=== PATIENT | male | born 1990 | race Caucasian/White ===

== ENCOUNTER 2019-11-15 07:33 | Emergency (ER) | payer BC ==
[~2019-11-15] VITALS: Ht 193 cm; Wt 163.3 kg
[~2019-11-15 07:33] MED LIST: AMLODIPINE BES2.5 MG PO; CHLO25 PO; IBUP800 PO; LISI5 PO; NALT50 PO; Ondansetron Odt8 MG MM; PARO20 PO; Pepcid20 MG PO
[2019-11-15 08:31] LABS: BASOPHILS ABSOLUTE AUTO 0.02 K/mm3 (0.00-0.23); BASOPHILS PERCENT AUTO 0 % (0-2); EOSINOPHILS ABSOLUTE AUTO 0.03 K/mm3 (0.00-0.68); EOSINOPHILS PERCENT AUTO 0 % (0-6); Hematocrit 43.6 % (37.0-53.0); Hemoglobin 14.4 g/dL (13.5-17.5); IMMATURE GRAN ABSOLUTE AUTO 0.05 K/mm3 (0.00-0.10); IMMATURE GRAN PERCENT AUTO 1 % (0-1); LYMPHOCYTES ABSOLUTE AUTO 1.79 K/mm3 (0.84-5.20); LYMPHOCYTES PERCENT AUTO 21 % (21-46); MONOCYTES ABSOLUTE AUTO 0.75 K/mm3 (0.16-1.47); MONOCYTES PERCENT AUTO 9 % (4-13); Mean Corpuscular HGB 28.7 pg (26.0-34.0); Mean Corpuscular Volume 87 fL (80-100); Mean Platelet Volume 9.1 fL (9.1-12.4); NEUTROPHILS PERCENT AUTO 69 % (41-73); Platelet Count 299 K/mm3 (150-400); RDW Standard Deviation 44.5 fL (35.1-46.3); Red Blood Cell Count 5.02 M/mm3 (4.30-5.90); White Blood Cell Count 8.44 K/mm3 (4.00-11.30)
[2019-11-15 08:41] LABS: Alanine Aminotransfer (ALT/SGP 61 U/L (12-78); Albumin, Blood 3.6 g/dL (3.4-5.0); Albumin/Globulin Ratio 0.9 (0.8-1.8); Alk Phos 61 U/L (50-136); Anion Gap 4 mmol/L (6-16); Aspartate Aminotrans (AST/SGOT 43 U/L (12-37); Bilirubin, Total 0.3 mg/dL (0.1-1.0); Blood Urea Nitrogen 11 mg/dL (8-24); Bun/Creatinine Ratio 13.1 (12.0-20.0); CO2, Blood 28 mmol/L (21-32); Calcium, Blood 8.6 mg/dL (8.5-10.1); Chloride, Blood 110 mmol/L (98-108); Creatinine, Blood 0.84 mg/dL (0.60-1.20); Globulin, Blood 3.8 g/dL (2.2-4.0); Glomerular Filtration Rate >60 (60-); Glucose, Blood 110 mg/dL (70-99); Magnesium, Blood 2.1 mg/dL (1.6-2.4); Potassium, Blood 4.1 mmol/L (3.5-5.5); Sodium, Blood 142 mmol/L (136-145); Total Protein, Blood 7.4 g/dL (6.4-8.2)
[2019-11-15] MEDS ORDERED: PROM25 PO (09:31)
[2019-11-15] MEDS ORDERED: CHLO25 PO (09:31)
== END 2019-11-15 09:50 | disposition home or self-care (01) ==
LOC: ER 07:33
PROVIDERS: Emergency Medicine
DX: F10.239 Alcohol dependence with withdrawal, unspecified (principal); F17.210 Nicotine dependence, cigarettes, uncomplicated; F41.0 Panic disorder [episodic paroxysmal anxiety]
CPT/HCPCS: 36415; 80053; 83690; 83735; 85025; 96374; 96375; 99284-25; A9270-GY; J2060; J2550; J7120

== ENCOUNTER 2019-12-19 18:28 | Observation (INO) | payer BC ==
[~2019-12-19] VITALS: Ht 193 cm; Wt 159.0 kg
[~2019-12-19 18:28] MED LIST changes: -AMLODIPINE BES2.5 MG PO; -LISI5 PO; +PROM25 PO
[2019-12-19] MEDS ORDERED: Prinivil10 MG PO (19:26)
[2019-12-19] MEDS ORDERED: OMEP20ER PO (19:27)
[2019-12-19] MEDS ORDERED: AMLODIPINE BES2.5 MG PO (19:27)
[2019-12-19] MEDS ORDERED: Naltrexone HCl50 MG PO (19:28)
[2019-12-19] MEDS ORDERED: Hydroxyzine HCl50 MG PO (19:29)
[2019-12-19 20:33] LABS: BASOPHILS ABSOLUTE AUTO 0.03 K/mm3 (0.00-0.23); BASOPHILS PERCENT AUTO 0 % (0-2); EOSINOPHILS ABSOLUTE AUTO 0.03 K/mm3 (0.00-0.68); EOSINOPHILS PERCENT AUTO 0 % (0-6); Hematocrit 45.4 % (37.0-53.0); Hemoglobin 14.6 g/dL (13.5-17.5); IMMATURE GRAN ABSOLUTE AUTO 0.04 K/mm3 (0.00-0.10); IMMATURE GRAN PERCENT AUTO 0 % (0-1); LYMPHOCYTES ABSOLUTE AUTO 3.78 K/mm3 (0.84-5.20); LYMPHOCYTES PERCENT AUTO 37 % (21-46); MONOCYTES ABSOLUTE AUTO 0.84 K/mm3 (0.16-1.47); MONOCYTES PERCENT AUTO 8 % (4-13); Mean Corpuscular HGB 28.2 pg (26.0-34.0); Mean Corpuscular HGB Conc 32.2 g/dL (31.5-36.5); Mean Corpuscular Volume 88 fL (80-100); Mean Platelet Volume 9.2 fL (9.1-12.4); NEUTROPHILS ABSOLUTE AUTO 5.51 K/mm3 (1.96-9.15); NEUTROPHILS PERCENT AUTO 54 % (41-73); Platelet Count 387 K/mm3 (150-400); RDW Standard Deviation 42.4 fL (35.1-46.3); Red Blood Cell Count 5.17 M/mm3 (4.30-5.90); White Blood Cell Count 10.23 K/mm3 (4.00-11.30)
[2019-12-19 20:51] LABS: Alanine Aminotransfer (ALT/SGP 65 U/L (12-78); Albumin, Blood 3.9 g/dL (3.4-5.0); Alk Phos 60 U/L (50-136); Anion Gap 7 mmol/L (6-16); Aspartate Aminotrans (AST/SGOT 46 U/L (12-37); Bilirubin, Total 0.4 mg/dL (0.1-1.0); Blood Urea Nitrogen 8 mg/dL (8-24); Bun/Creatinine Ratio 7.3 (12.0-20.0); CO2, Blood 24 mmol/L (21-32); Calcium, Blood 8.1 mg/dL (8.5-10.1); Chloride, Blood 108 mmol/L (98-108); Globulin, Blood 3.8 g/dL (2.2-4.0); Glomerular Filtration Rate >60 (60-); Glucose, Blood 103 mg/dL (70-99); Sodium, Blood 139 mmol/L (136-145); Total Protein, Blood 7.7 g/dL (6.4-8.2)
[2019-12-19 20:54] LABS: Ethanol (Alcohol), Blood, Med 340 mg/dL
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
--- NOTE | 2019-12-20 05:30 | NUR ---
SHIFT SUMMARY NO ACUTE EVENTS OVERNIGHT. PT SLEPT THROUGHOUT THE NIGHT. PT RESPONDING TO VERBAL STIMULI, WITHOUT ANY NOXIOUS STIMULI. BEFORE, ONE WOULD HAVE TO "NUDGE" HIM A BIT TO GET A RESPONSE, NOW THE SEDATION LEVEL APPEARS TO BE TRANSFER CAR OPERATOR, AND HE IS MOVING AROUND MORE FREQUENTLY - YET REMAINS ASLEEP. HE CONTINUES TO USE 8L ON THE OXYMIZER, WHEN NOT OBSTRUCTING HE SATs HIGH 90's. THE BANANA BAG CONTINUES TO INFUSE AT 75ML/HR. VITALS STABLE, SINUS RHYTHM. BED LOW AND LOCKED. CALL LIGHT WITHIN REACH. ARISTEO ESPINOSA ACTING SITTER.
[2019-12-20 08:31] LABS: BASOPHILS ABSOLUTE AUTO 0.04 K/mm3 (0.00-0.23); BASOPHILS PERCENT AUTO 0 % (0-2); EOSINOPHILS ABSOLUTE AUTO 0.01 K/mm3 (0.00-0.68); EOSINOPHILS PERCENT AUTO 0 % (0-6); Hematocrit 45.7 % (37.0-53.0); Hemoglobin 14.3 g/dL (13.5-17.5); IMMATURE GRAN ABSOLUTE AUTO 0.07 K/mm3 (0.00-0.10); IMMATURE GRAN PERCENT AUTO 1 % (0-1); LYMPHOCYTES ABSOLUTE AUTO 1.87 K/mm3 (0.84-5.20); LYMPHOCYTES PERCENT AUTO 17 % (21-46); MONOCYTES ABSOLUTE AUTO 0.86 K/mm3 (0.16-1.47); MONOCYTES PERCENT AUTO 8 % (4-13); Mean Corpuscular HGB 28.3 pg (26.0-34.0); Mean Corpuscular HGB Conc 31.3 g/dL (31.5-36.5); Mean Corpuscular Volume 90 fL (80-100); Mean Platelet Volume 9.1 fL (9.1-12.4); NEUTROPHILS ABSOLUTE AUTO 8.37 K/mm3 (1.96-9.15); NEUTROPHILS PERCENT AUTO 75 % (41-73); Platelet Count 308 K/mm3 (150-400); RDW Coefficient Variation 13.2 % (11.7-14.2); Red Blood Cell Count 5.06 M/mm3 (4.30-5.90); White Blood Cell Count 11.22 K/mm3 (4.00-11.30)
[2019-12-20 08:45] LABS: Alanine Aminotransfer (ALT/SGP 68 U/L (12-78); Albumin, Blood 3.5 g/dL (3.4-5.0); Albumin/Globulin Ratio 0.9 (0.8-1.8); Alk Phos 56 U/L (50-136); Anion Gap 7 mmol/L (6-16); Aspartate Aminotrans (AST/SGOT 117 U/L (12-37); Bilirubin, Total 0.6 mg/dL (0.1-1.0); Blood Urea Nitrogen 10 mg/dL (8-24); Bun/Creatinine Ratio 9.7 (12.0-20.0); CO2, Blood 23 mmol/L (21-32); Chloride, Blood 106 mmol/L (98-108); Creatinine, Blood 1.03 mg/dL (0.60-1.20); Globulin, Blood 3.7 g/dL (2.2-4.0); Glomerular Filtration Rate >60 (60-); Glucose, Blood 112 mg/dL (70-99); Potassium, Blood 4.4 mmol/L (3.5-5.5); Sodium, Blood 136 mmol/L (136-145); Total Protein, Blood 7.2 g/dL (6.4-8.2)
--- NOTE | 2019-12-20 15:55 | NUR ---
Safety Plan complete. Harmonyjohn present in room. Harmonyjohn called for help to get pt to the hospital. Sarina reports "he cannot sit still". Patient had relapsed after 32 days of sobriety. he was unable to identify what stressors may have been present. He does own a 45 gun. Discussed with he and sarina to lock it up so he does not have access "in case he drank again". Reviewed poor impulse control and risk when intoxicated. Crisis number magnet and sarina given "after an attempt" education booklet. Pt completed [facility] in past. He denies current SI or previous attempts. Discussed AA and referral to [facility] for him. RN apprised and will contact Historian Research Assistant for DC plan. Yang has panic attacks since age 17, and he began drinking then also to try and control them. 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 He smokes pot to calm down at home. He has been on Naltrexone before, but it made him ill when he took it. Discussed Anatabuse, and suggested he speak to psychiatrist seeing him in afternoon. Interview completed at 1230.
[2019-12-20] MEDS ORDERED: TRAZ50 PO (16:48)
--- NOTE | 2019-12-20 17:21 | NUR ---
DISCHARGE PT ALERT AND ORIENTED THROUGHOUT SHIFT. VS STABLE. O2 SATS HAVE REMAINED ABOVE 90% ON RA SINCE APPROXIMATELY 0900. PT DENIES ANY PAIN. PT MEDICATED WITH LIBRIUM PER JAYLENE. DR. KING IN TO SEE PT THIS AFTERNOON AND OK WITH DISCHARGE. PT PROVIDED WITH DISCHARGE INSTRUCTIONS. PT EDUCATED ON NEW MEDICATIONS. ALL QUESTIONS ANSWERED. PT TAKEN OUT BY WC.
== END 2019-12-20 17:15 | disposition home or self-care (01) ==
LOC: ER 18:28 → EOR 18:29 → ER 18:29 → ICUW 23:17
PROVIDERS: Internal Medicine; Physician Assistant; ADMIT Emergency Medicine
DX: F10.229 Alcohol dependence with intoxication, unspecified (principal); G93.40 Encephalopathy, unspecified; J96.01 Acute respiratory failure with hypoxia; I10 Essential (primary) hypertension; K21.9 Gastro-esophageal reflux disease without esophagitis; F41.9 Anxiety disorder, unspecified; Z79.899 Other long term (current) drug therapy; E66.9 Obesity, unspecified; F17.210 Nicotine dependence, cigarettes, uncomplicated; Z68.42 Body mass index [BMI] 45.0-49.9, adult; Y90.8 Blood alcohol level of 240 mg/100 ml or more
CPT/HCPCS: 36415; 80053; 85025; 96365; 96366; 96372-59; 96374-59; 96375-59; 99285-25; G0378; G0480; J1200; J1630; J2060; J2405; J3411; J3475; J7042

== ENCOUNTER 2020-03-10 18:36 | Emergency (ER) | payer BC ==
[~2020-03-10] VITALS: Ht 193 cm; Wt 170.1 kg
[~2020-03-10 18:36] MED LIST changes: +AMLODIPINE BES2.5 MG PO; +Hydroxyzine HCl50 MG PO; +Naltrexone HCl50 MG PO; +OMEP20ER PO; +Prinivil10 MG PO; +TRAZ50 PO
== END 2020-03-10 21:40 | disposition home or self-care (01) ==
LOC: ER 18:36
DX: S60.222A Contusion of left hand, initial encounter (principal); F41.9 Anxiety disorder, unspecified; I10 Essential (primary) hypertension; F17.210 Nicotine dependence, cigarettes, uncomplicated; Z79.899 Other long term (current) drug therapy; W22.01XA Walked into wall, initial encounter
CPT/HCPCS: 73130; 99283-25

== ENCOUNTER 2020-03-11 21:53 | Emergency (ER) | payer BC ==
[~2020-03-11] VITALS: Ht 195.6 cm; Wt 170.1 kg
[2020-03-12] MEDS ORDERED: CHLO25 PO (06:03)
== END 2020-03-11 22:49 | disposition left against medical advice (07) ==
LOC: ER 21:53
DX: Z53.21 Procedure and treatment not carried out due to patient leaving prior to being seen by health care provider (principal)

== ENCOUNTER 2020-03-12 02:12 | Emergency (ER) | payer BC ==
[~2020-03-12] VITALS: Ht 195.6 cm; Wt 170.1 kg
[2020-03-12 04:47] LABS: BASOPHILS ABSOLUTE AUTO 0.03 K/mm3 (0.00-0.23); BASOPHILS PERCENT AUTO 0 % (0-2); EOSINOPHILS ABSOLUTE AUTO 0.03 K/mm3 (0.00-0.68); EOSINOPHILS PERCENT AUTO 0 % (0-6); Hematocrit 44.3 % (37.0-53.0); Hemoglobin 14.6 g/dL (13.5-17.5); IMMATURE GRAN ABSOLUTE AUTO 0.03 K/mm3 (0.00-0.10); IMMATURE GRAN PERCENT AUTO 0 % (0-1); LYMPHOCYTES ABSOLUTE AUTO 2.55 K/mm3 (0.84-5.20); LYMPHOCYTES PERCENT AUTO 32 % (21-46); MONOCYTES ABSOLUTE AUTO 0.57 K/mm3 (0.16-1.47); MONOCYTES PERCENT AUTO 7 % (4-13); Mean Corpuscular HGB 28.7 pg (26.0-34.0); Mean Corpuscular Volume 87 fL (80-100); Mean Platelet Volume 9.1 fL (9.1-12.4); NEUTROPHILS ABSOLUTE AUTO 4.79 K/mm3 (1.96-9.15); NEUTROPHILS PERCENT AUTO 60 % (41-73); NRBC ABSOLUTE 0.02 K/mm3 (0.00-0.02); NRBC Auto 0.3 /100 WBC (0.0-0.2); Platelet Count 340 K/mm3 (150-400); RDW Coefficient Variation 13.8 % (11.7-14.2); Red Blood Cell Count 5.08 M/mm3 (4.30-5.90)
[2020-03-12 05:08] LABS: Alanine Aminotransfer (ALT/SGP 69 U/L (12-78); Albumin, Blood 3.9 g/dL (3.4-5.0); Alk Phos 58 U/L (50-136); Anion Gap 7 mmol/L (6-16); Aspartate Aminotrans (AST/SGOT 51 U/L (12-37); Bilirubin, Total 0.6 mg/dL (0.1-1.0); Blood Urea Nitrogen 11 mg/dL (8-24); Bun/Creatinine Ratio 8.6 (12.0-20.0); CO2, Blood 26 mmol/L (21-32); Calcium, Blood 8.3 mg/dL (8.5-10.1); Chloride, Blood 107 mmol/L (98-108); Creatinine, Blood 1.28 mg/dL (0.60-1.20); Globulin, Blood 3.9 g/dL (2.2-4.0); Glomerular Filtration Rate >60 (60-); Glucose, Blood 111 mg/dL (70-99); Potassium, Blood 4.4 mmol/L (3.5-5.5); Sodium, Blood 140 mmol/L (136-145); Total Protein, Blood 7.8 g/dL (6.4-8.2)
[2020-03-12] MEDS ORDERED: CHLO25 PO (06:03)
== END 2020-03-12 08:10 | disposition home or self-care (01) ==
LOC: ER 02:12
PROVIDERS: Emergency Medicine
DX: F10.10 Alcohol abuse, uncomplicated (principal); Z60.9 Problem related to social environment, unspecified; R45.851 Suicidal ideations; F41.0 Panic disorder [episodic paroxysmal anxiety]; F32.9 Major depressive disorder, single episode, unspecified; F17.210 Nicotine dependence, cigarettes, uncomplicated; Z79.899 Other long term (current) drug therapy
CPT/HCPCS: 36415; 80053; 83690; 85025; 96361; 96374; 96375; 99284-25; A9270-GY; J2060; J2405; J7030

== ENCOUNTER 2020-08-25 21:29 | Observation (INO) | payer OTHER ==
[~2020-08-25] VITALS: Ht 193 cm; Wt 176.4 kg
[~2020-08-25 21:29] MED LIST changes: -AMLODIPINE BES2.5 MG PO; -OMEP20ER PO; -Prinivil10 MG PO; -TRAZ50 PO
[2020-08-25 22:01] LABS: BASOPHILS ABSOLUTE AUTO 0.04 K/mm3 (0.00-0.23); BASOPHILS PERCENT AUTO 0 % (0-2); EOSINOPHILS ABSOLUTE AUTO 0.02 K/mm3 (0.00-0.68); EOSINOPHILS PERCENT AUTO 0 % (0-6); Hematocrit 44.2 % (37.0-53.0); Hemoglobin 14.9 g/dL (13.5-17.5); IMMATURE GRAN ABSOLUTE AUTO 0.08 K/mm3 (0.00-0.10); IMMATURE GRAN PERCENT AUTO 1 % (0-1); LYMPHOCYTES ABSOLUTE AUTO 3.22 K/mm3 (0.84-5.20); LYMPHOCYTES PERCENT AUTO 34 % (21-46); MONOCYTES ABSOLUTE AUTO 0.81 K/mm3 (0.16-1.47); MONOCYTES PERCENT AUTO 9 % (4-13); Mean Corpuscular HGB 28.2 pg (26.0-34.0); Mean Corpuscular HGB Conc 33.7 g/dL (31.5-36.5); Mean Corpuscular Volume 84 fL (80-100); Mean Platelet Volume 8.8 fL (9.1-12.4); NEUTROPHILS ABSOLUTE AUTO 5.24 K/mm3 (1.96-9.15); NEUTROPHILS PERCENT AUTO 56 % (41-73); Platelet Count 386 K/mm3 (150-400); RDW Coefficient Variation 13.4 % (11.7-14.2); RDW Standard Deviation 41.2 fL (35.1-46.3); Red Blood Cell Count 5.28 M/mm3 (4.30-5.90); White Blood Cell Count 9.41 K/mm3 (4.00-11.30)
[2020-08-25 22:21] LABS: Alanine Aminotransfer (ALT/SGP 59 U/L (12-78); Alk Phos 61 U/L (50-136); Anion Gap 5 mmol/L (6-16); Aspartate Aminotrans (AST/SGOT 47 U/L (12-37); Bilirubin, Total 0.5 mg/dL (0.1-1.0); Blood Urea Nitrogen 6 mg/dL (8-24); Bun/Creatinine Ratio 6.6 (12.0-20.0); CO2, Blood 30 mmol/L (21-32); Calcium, Blood 8.6 mg/dL (8.5-10.1); Chloride, Blood 106 mmol/L (98-108); Creatinine, Blood 0.91 mg/dL (0.60-1.20); Globulin, Blood 3.9 g/dL (2.2-4.0); Glomerular Filtration Rate >60 (60-); Glucose, Blood 119 mg/dL (70-99); Potassium, Blood 3.7 mmol/L (3.5-5.5); Sodium, Blood 141 mmol/L (136-145); Total Protein, Blood 7.9 g/dL (6.4-8.2)
[2020-08-25 22:22] LABS: Ethanol (Alcohol), Blood, Med 307 mg/dL
[2020-08-25] MEDS ORDERED: AMLO10 PO (22:35)
[2020-08-25] MEDS ORDERED: BUSPIRONE HCL10 M1 PO (22:35)
[2020-08-25] MEDS ORDERED: Vistaril50 MG PO (22:36)
[2020-08-25] MEDS ORDERED: LISI20 PO (22:36)
[2020-08-25] MEDS ORDERED: CLON.1 PO (22:37)
[2020-08-25] MEDS ORDERED: OMEP20ER PO (22:44)
[2020-08-25] MEDS ORDERED: TRAZ50 PO (22:45)
--- NOTE | 2020-08-26 02:20 | NUR ---
PT TO ICU 14 VIA NATALIARANTONIO WITH ED RN @ 0125, PT ALERT AND ORIENTED TO SELF, EVENT, LOCATION, MONTH/YEAR AND FOLLOWING DIRECTIONS. PT TRANSFERED TO ICU WITH SBA. [place] 15, MEDICATED WITH ATIVAN AND LIBRIUM. MONITOR SHOWS SINUS RHYTHM WITH HR 80'S-90'S, BP STABLE. PT ON 3L PER NC. PTS SPOUSE TO ROOM, COMPLETED MED REC AND ADMIT Hx WITH PTS SPOUSE, DISCUSSED PLAN OF CARE WITH SPOUSE, SPOUSE AND PT PLEASANT AND AGREEABLE WITH PLAN TO MEDICATE PT PRIMARILY WITH LIBRIUM AND ATIVAN FOR ALCOHOL WITHDRAWALS. PTS STS PT WAS RECENTLY DISCHARGED FROM REHAB FOR ALCOHOL ABUSE IN [place] AND THE PLAN IS FOR PT TO TRAVEL TO [place] IN A COUPLE OF DAYS FOR A 9 MONTH INPATIENT REHAB. PT QUICKLY FELL ASLEEP AFTER ATIVAN ADMINISTRATION. SPOUSE STS PT RECENTLY HAD SLEEP STUDY BUT THEY HAVE NOT RECEIVED RESULTS YET. PT CURRENTLY WITH WITNESSED PERIODS OF APNEA WHILE SLEEPING WITH OXYGEN DESATURATIONS TO 60'S. CALL PLACED TO DR ROD, SEE NEW ORDER FOR CPAP/BIPAP. NOTIFED RT OF NEW ORDER. PT DENIED GI/ ISSUES. URINAL AT BEDSIDE, CALL LIGHT WITHIN REACH.
--- NOTE | 2020-08-26 02:45 | NUR ---
PTS O2 SATURATIONS MAINTAINING 70'S-80'S, PT DIFFICULT TO AROUSE, PT PLACED ON 15L NRB, O2 SATURATIONS IMPROVED TO 95-99% SECOND CALL PLACED TO RT FOR CPAP.
--- NOTE | 2020-08-26 03:30 | NUR ---
PT PLACED ON CPAP 10, FIO2 30%. WOB DECREASED, AIRMOVEMENT AND LUNG SOUNDS IMPROVED, MILD COARSNESS NOTED T/O. PT REMAINS VERY SEDATED AND DIFFICULT TO AROUSE.
[2020-08-26 03:40] LABS: BASOPHILS ABSOLUTE AUTO 0.04 K/mm3 (0.00-0.23); BASOPHILS PERCENT AUTO 0 % (0-2); EOSINOPHILS ABSOLUTE AUTO 0.03 K/mm3 (0.00-0.68); EOSINOPHILS PERCENT AUTO 0 % (0-6); Hematocrit 42.6 % (37.0-53.0); Hemoglobin 13.9 g/dL (13.5-17.5); IMMATURE GRAN ABSOLUTE AUTO 0.06 K/mm3 (0.00-0.10); IMMATURE GRAN PERCENT AUTO 1 % (0-1); LYMPHOCYTES ABSOLUTE AUTO 3.31 K/mm3 (0.84-5.20); LYMPHOCYTES PERCENT AUTO 36 % (21-46); MONOCYTES ABSOLUTE AUTO 0.94 K/mm3 (0.16-1.47); MONOCYTES PERCENT AUTO 10 % (4-13); Mean Corpuscular HGB 28.3 pg (26.0-34.0); Mean Corpuscular HGB Conc 32.6 g/dL (31.5-36.5); Mean Corpuscular Volume 87 fL (80-100); NEUTROPHILS ABSOLUTE AUTO 4.85 K/mm3 (1.96-9.15); NEUTROPHILS PERCENT AUTO 53 % (41-73); Platelet Count 403 K/mm3 (150-400); RDW Coefficient Variation 13.8 % (11.7-14.2); RDW Standard Deviation 43.8 fL (35.1-46.3); Red Blood Cell Count 4.92 M/mm3 (4.30-5.90); White Blood Cell Count 9.23 K/mm3 (4.00-11.30)
[2020-08-26 04:00] LABS: Alanine Aminotransfer (ALT/SGP 50 U/L (12-78); Albumin, Blood 3.5 g/dL (3.4-5.0); Alk Phos 57 U/L (50-136); Anion Gap 3 mmol/L (6-16); Aspartate Aminotrans (AST/SGOT 35 U/L (12-37); Bilirubin, Total 0.5 mg/dL (0.1-1.0); Blood Urea Nitrogen 7 mg/dL (8-24); Bun/Creatinine Ratio 8.5 (12.0-20.0); CO2, Blood 31 mmol/L (21-32); Calcium, Blood 7.7 mg/dL (8.5-10.1); Chloride, Blood 107 mmol/L (98-108); Creatinine, Blood 0.82 mg/dL (0.60-1.20); Globulin, Blood 3.5 g/dL (2.2-4.0); Glomerular Filtration Rate >60 (60-); Glucose, Blood 135 mg/dL (70-99); Potassium, Blood 4.3 mmol/L (3.5-5.5); Sodium, Blood 141 mmol/L (136-145)
--- NOTE | 2020-08-26 05:27 | NUR ---
SHIFT SUMMARY PT REMAINS ON CPAP 10 FIO2 40%, PT CONTINUES TO BE DIFFICULT TO AROUSE BUT OPENS EYES TO VERBAL STIMULI. MONITOR SHOWS SINUS RHYTHM WITH HR 80'S-90'S, BP STABLE. CIWA UPON ARRIVAL TO UNIT 15, PT SLEEPING/DIFFICULT TO AROUSE FOR ALL FOLLOW UP ASSESSMENTS. O2 SATURATIONS> 90% ON CPAP, RESPIRATIONS EVEN AND UNLABORED. NO VOID/BM THIS SHIFT. CALL LIGHT WITHIN REACH.
--- NOTE | 2020-08-26 09:12 | NUR ---
Received report from Tammie CARDENAS. Patient has been sleeping most of am on CPAP 10, 30% fiO2 and sats 98%. He just awakened and gave 2 mg Ativan and 50 mg Librium as wekll all am meds and he tolerated well with sips of water. He asked to stand at bedside and did well independently ansd remains a little shakey. He denies any apetite and refuse breakfast currently. He is on banana bag at 75 ml/hr infusing in 18ga IV in LAC. He uses urinal appropriately. He is SR 70's and systolic 140-150's prior to am meds. He is currently on RA and sats low 90%'s.
--- NOTE | 2020-08-26 11:27 | NUR ---
After patient done with shower requested breakfast and ate about 70% and started to go back top sleep. I placed back on CPAP at 1030 same settings and sats >95%. called and gave update. Dr Coulter by and med changes for home meds.
--- NOTE | 2020-08-26 14:07 | NUR ---
patient sitting up in bwed and is appropriate and cooperative, His tremors are decreased and is independent in room. He states no neEd currently for intervention for anxiety. VSS, See EMR. Nicotine patch placed. CIWA 5
[2020-08-26] MEDS ORDERED: Nicoderm Cq1 EAC1 TOP (14:51)
[2020-08-26] MEDS ORDERED: FOLI1 PO (14:52)
[2020-08-26] MEDS ORDERED: CHLO25 PO (14:52)
[2020-08-26] MEDS ORDERED: B-1100 M1 PO (14:52)
--- NOTE | 2020-08-26 15:15 | NUR ---
Dr Mae by and assessed patient and discharged home. He is driving to rehab in [place] and leaving today. Reduced anxiety and is looking forward to going to sober living. He received written discharge instructions and recveiwed med list and meds for ETOH withdrawl. Patient continues to be independent and stable in room. Pulled IV intact and wrapped with coban. He was taken out in wheelchair to [facility].
== END 2020-08-26 15:20 | disposition home or self-care (01) ==
LOC: ER 21:29 → ERHOLD 21:30 → ICUW 08-26 01:29
PROVIDERS: Physician Assistant; ADMIT Internal Medicine
DX: F10.239 Alcohol dependence with withdrawal, unspecified (principal); T51.0X2A Toxic effect of ethanol, intentional self-harm, initial encounter; F10.229 Alcohol dependence with intoxication, unspecified; Y90.8 Blood alcohol level of 240 mg/100 ml or more; I10 Essential (primary) hypertension; F41.9 Anxiety disorder, unspecified; F17.210 Nicotine dependence, cigarettes, uncomplicated; E66.01 Morbid (severe) obesity due to excess calories; Z68.42 Body mass index [BMI] 45.0-49.9, adult; Z89.019 Acquired absence of unspecified thumb
CPT/HCPCS: 36415; 80053; 85025; 94660; 96365; 96366; 96367; 96372; 96375; 96376; 99285-25; A9270; G0378; G0480; J1650; J2060; J2405; J2560; J3411; J3475; J7030; J7042

== ENCOUNTER 2021-06-13 06:18 | Emergency (ER) | payer OTHER ==
[~2021-06-13] VITALS: Ht 195.6 cm; Wt 170.1 kg
[~2021-06-13 06:18] MED LIST changes: +AMLO10 PO; +B-1100 M1 PO; +BUSPIRONE HCL10 M1 PO; +CLON.1 PO; +FOLI1 PO; +LISI20 PO; +Nicoderm Cq1 EAC1 TOP; +OMEP20ER PO; +TRAZ50 PO; +Vistaril50 MG PO
[2021-06-13 08:05] LABS: BASOPHILS ABSOLUTE AUTO 0.03 K/mm3 (0.00-0.23); BASOPHILS PERCENT AUTO 1 % (0-2); EOSINOPHILS ABSOLUTE AUTO 0.02 K/mm3 (0.00-0.68); EOSINOPHILS PERCENT AUTO 0 % (0-6); Hematocrit 45.6 % (37.0-53.0); Hemoglobin 15.2 g/dL (13.5-17.5); IMMATURE GRAN ABSOLUTE AUTO 0.03 K/mm3 (0.00-0.10); IMMATURE GRAN PERCENT AUTO 1 % (0-1); LYMPHOCYTES ABSOLUTE AUTO 1.64 K/mm3 (0.84-5.20); LYMPHOCYTES PERCENT AUTO 25 % (21-46); MONOCYTES ABSOLUTE AUTO 0.55 K/mm3 (0.16-1.47); MONOCYTES PERCENT AUTO 8 % (4-13); Mean Corpuscular HGB 27.8 pg (26.0-34.0); Mean Corpuscular HGB Conc 33.3 g/dL (31.5-36.5); Mean Corpuscular Volume 83 fL (80-100); NEUTROPHILS ABSOLUTE AUTO 4.34 K/mm3 (1.96-9.15); NEUTROPHILS PERCENT AUTO 66 % (41-73); Platelet Count 369 K/mm3 (150-400); RDW Coefficient Variation 13.6 % (11.7-14.2); RDW Standard Deviation 41.7 fL (35.1-46.3); Red Blood Cell Count 5.47 M/mm3 (4.30-5.90); White Blood Cell Count 6.61 K/mm3 (4.00-11.30)
[2021-06-13 08:24] LABS: Alanine Aminotransfer (ALT/SGP 102 U/L (12-78); Albumin, Blood 3.6 g/dL (3.4-5.0); Alk Phos 66 U/L (50-136); Anion Gap 6 mmol/L (6-16); Aspartate Aminotrans (AST/SGOT 66 U/L (12-37); Bilirubin, Total 0.8 mg/dL (0.1-1.0); Blood Urea Nitrogen 7 mg/dL (8-24); Bun/Creatinine Ratio 7.7 (12.0-20.0); CO2, Blood 27 mmol/L (21-32); Calcium, Blood 8.3 mg/dL (8.5-10.1); Chloride, Blood 107 mmol/L (98-108); Creatinine, Blood 0.92 mg/dL (0.60-1.20); Ethanol (Alcohol), Blood, Med 71 mg/dL; Globulin, Blood 3.6 g/dL (2.2-4.0); Glomerular Filtration Rate >60 (60-); Glucose, Blood 119 mg/dL (70-99); Sodium, Blood 140 mmol/L (136-145); Total Protein, Blood 7.2 g/dL (6.4-8.2); Troponin I <0.015 ng/mL (0.000-0.040)
[2021-06-13] MEDS ORDERED: CHLO25 PO (10:09)
[2021-06-13] MEDS ORDERED: ZESTRIL40 M1 PO (10:53)
== END 2021-06-13 12:35 | disposition home or self-care (01) ==
LOC: ER 06:18
PROVIDERS: Physician Assistant
DX: F10.239 Alcohol dependence with withdrawal, unspecified (principal); F10.229 Alcohol dependence with intoxication, unspecified; Y90.3 Blood alcohol level of 60-79 mg/100 ml; Z79.899 Other long term (current) drug therapy; I10 Essential (primary) hypertension; F17.210 Nicotine dependence, cigarettes, uncomplicated
CPT/HCPCS: 36415; 80053; 84484; 85025; 93005; 93010; 96374; 96376; 99285-25; G0480; J2060; J7030

== ENCOUNTER 2021-08-27 21:28 | Inpatient (IN) | payer OTHER ==
[~2021-08-27] VITALS: Ht 193 cm; Wt 113.3 kg
[~2021-08-27 21:28] MED LIST changes: +ZESTRIL40 M1 PO
[2021-08-27 22:20] LABS: BASOPHILS ABSOLUTE AUTO 0.04 K/mm3 (0.00-0.23); BASOPHILS PERCENT AUTO 0 % (0-2); EOSINOPHILS ABSOLUTE AUTO 0.01 K/mm3 (0.00-0.68); EOSINOPHILS PERCENT AUTO 0 % (0-6); Hematocrit 47.7 % (37.0-53.0); Hemoglobin 16.3 g/dL (13.5-17.5); IMMATURE GRAN ABSOLUTE AUTO 0.05 K/mm3 (0.00-0.10); IMMATURE GRAN PERCENT AUTO 0 % (0-1); LYMPHOCYTES ABSOLUTE AUTO 3.92 K/mm3 (0.84-5.20); LYMPHOCYTES PERCENT AUTO 35 % (21-46); MONOCYTES ABSOLUTE AUTO 0.87 K/mm3 (0.16-1.47); MONOCYTES PERCENT AUTO 8 % (4-13); Mean Corpuscular HGB 28.2 pg (26.0-34.0); Mean Corpuscular HGB Conc 34.2 g/dL (31.5-36.5); Mean Corpuscular Volume 82 fL (80-100); Mean Platelet Volume 8.9 fL (9.1-12.4); NEUTROPHILS ABSOLUTE AUTO 6.46 K/mm3 (1.96-9.15); NEUTROPHILS PERCENT AUTO 57 % (41-73); Platelet Count 470 K/mm3 (150-400); RDW Coefficient Variation 13.3 % (11.7-14.2); RDW Standard Deviation 39.8 fL (35.1-46.3); Red Blood Cell Count 5.79 M/mm3 (4.30-5.90); White Blood Cell Count 11.35 K/mm3 (4.00-11.30)
[2021-08-27 23:01] LABS: Magnesium, Blood 2.2 mg/dL (1.6-2.4)
[2021-08-27 23:02] LABS: Alanine Aminotransfer (ALT/SGP 95 U/L (12-78); Albumin, Blood 3.9 g/dL (3.4-5.0); Albumin/Globulin Ratio 0.9 (0.8-1.8); Alk Phos 76 U/L (50-136); Anion Gap 6 mmol/L (6-16); Aspartate Aminotrans (AST/SGOT 63 U/L (12-37); Bilirubin, Total 0.5 mg/dL (0.1-1.0); Blood Urea Nitrogen 11 mg/dL (8-24); Bun/Creatinine Ratio 9.5 (12.0-20.0); CO2, Blood 24 mmol/L (21-32); Calcium, Blood 8.9 mg/dL (8.5-10.1); Chloride, Blood 108 mmol/L (98-108); Creatinine, Blood 1.16 mg/dL (0.60-1.20); Globulin, Blood 4.4 g/dL (2.2-4.0); Glomerular Filtration Rate >60 (60-); Glucose, Blood 148 mg/dL (70-99); Potassium, Blood 4.2 mmol/L (3.5-5.5); Sodium, Blood 138 mmol/L (136-145); Total Protein, Blood 8.3 g/dL (6.4-8.2)
[2021-08-27 23:21] LABS: Ethanol (Alcohol), Blood, Med 314 mg/dL
[2021-08-27 23:36] LABS: Source, Urine Clean Catch
[2021-08-27 23:38] LABS: Bilirubin, Urine Neg (Neg); Blood, Urine 2+ (Neg); Glucose Qualitative, Urine Neg (Neg); Ketones, Urine Neg (Neg); Leukocyte Esterase, Urine Neg (Neg); Nitrite, Urine Neg (Neg); Protein, Urine 2+ (Neg); Urobilinogen, Urine NORM (Normal)
[2021-08-28 00:26] LABS: Appearance, Urine Clear (Clear); Color, Urine Yellow (P-Yellow)
[2021-08-28 00:35] LABS: Bacteria Few /hpf; Granular Casts 0-2 /lpf (0); Red Blood Cells, Urine 0-2 /hpf (0-2); Squamous Epithelial Cells Few /hpf (Few)
[2021-08-28 03:33] LABS: BASOPHILS ABSOLUTE AUTO 0.03 K/mm3 (0.00-0.23); BASOPHILS PERCENT AUTO 0 % (0-2); EOSINOPHILS ABSOLUTE AUTO 0.02 K/mm3 (0.00-0.68); EOSINOPHILS PERCENT AUTO 0 % (0-6); Hemoglobin 13.7 g/dL (13.5-17.5); IMMATURE GRAN ABSOLUTE AUTO 0.03 K/mm3 (0.00-0.10); IMMATURE GRAN PERCENT AUTO 0 % (0-1); LYMPHOCYTES ABSOLUTE AUTO 3.22 K/mm3 (0.84-5.20); LYMPHOCYTES PERCENT AUTO 34 % (21-46); MONOCYTES ABSOLUTE AUTO 0.82 K/mm3 (0.16-1.47); MONOCYTES PERCENT AUTO 9 % (4-13); Mean Corpuscular HGB 27.8 pg (26.0-34.0); Mean Corpuscular HGB Conc 32.6 g/dL (31.5-36.5); Mean Corpuscular Volume 85 fL (80-100); Mean Platelet Volume 8.9 fL (9.1-12.4); NEUTROPHILS ABSOLUTE AUTO 5.42 K/mm3 (1.96-9.15); NEUTROPHILS PERCENT AUTO 57 % (41-73); Platelet Count 356 K/mm3 (150-400); RDW Coefficient Variation 13.4 % (11.7-14.2); RDW Standard Deviation 42.1 fL (35.1-46.3); Red Blood Cell Count 4.92 M/mm3 (4.30-5.90); White Blood Cell Count 9.54 K/mm3 (4.00-11.30)
[2021-08-28 03:54] LABS: Alanine Aminotransfer (ALT/SGP 81 U/L (12-78); Albumin, Blood 3.4 g/dL (3.4-5.0); Albumin/Globulin Ratio 0.9 (0.8-1.8); Alk Phos 60 U/L (50-136); Anion Gap 11 mmol/L (6-16); Aspartate Aminotrans (AST/SGOT 65 U/L (12-37); Bilirubin, Total 0.2 mg/dL (0.1-1.0); Blood Urea Nitrogen 11 mg/dL (8-24); Bun/Creatinine Ratio 12.8 (12.0-20.0); CO2, Blood 25 mmol/L (21-32); Calcium, Blood 8.5 mg/dL (8.5-10.1); Chloride, Blood 103 mmol/L (98-108); Creatinine, Blood 0.86 mg/dL (0.60-1.20); Globulin, Blood 3.6 g/dL (2.2-4.0); Glomerular Filtration Rate >60 (60-); Glucose, Blood 129 mg/dL (70-99); Potassium, Blood 4.3 mmol/L (3.5-5.5); Sodium, Blood 139 mmol/L (136-145)
--- NOTE | 2021-08-28 07:19 | NUR ---
SHIFT SUMMARY PATIENT ARRIVED TO ICU4 FROM ER WITH BANANA BAG INF TO 20G RT HAND IV; 18G LT FA IV PATENT. PATIENT WAS ABLE TO SELF TRANSFER FROM ER GURNEY TO ICU BED. CIWA'S RANGED FROM 3-22 IN ICU-TOTAL OF 3MG ATIVAN IV AND LIBRIUM 50MG PO GIVEN. PATIENT SLEPT MOST OF SHIFT FOLLOWING ADMISSION. 5LPM NC PLACED ON PATIENT D/T SPO2 DESATTING WHEN ASLEEP. VS REMAINED STABLE AFTER THAT. PATIENT WAS CALM AND COOPERATIVE WITH CARE. ABLE TO MAKE NEEDS KNOWN TO STAFF. NEEDS TO BE REMINDED TO REPOSITION SELF. NO OTHER MAJOR CHANGES DURING SHIFT.
--- NOTE | 2021-08-28 16:57 | NUR ---
SHIFT SUMMARY NO ACUTE CHANGES THIS SHIFT. PT IS ALERT, ORIENTED, AND COOPERATIVE WHEN AWAKE. PT ANSWERS QUESTIONS APPROPRIATELY AND FOLLOWS DIRECTIONS WELL. PT WITH INCREASING ANXEITY AND TREMORS THIS AFTERNOON. PT MED WITH LIBRIUM AND ATIVAN PER EMAR. PT UP TO TOILET TO VOID AND HAVE BM'S WITH STAND BY ASSIST. PT TOLERATING PO INTAKE WELL. BANANA BAG INFUSING AT 100 ML/HR. PT MOTHER BY TO SEE PT MULTIPLE TIMES THIS SHIFT. PT DISCUSSED CARE HOME ALCOHOL TREATMENT OPTIONS WITH KILN FIRER THIS AM. PT STATES HE WOULD LIKE TO GO STRAIGHT FROM THE HOSPITAL TO REHAB WHEN ABLE. VITAL SIGNS STABLE. PT WITH SNORING RESPIRATIONS WHILE SLEEPING, REQUIRING 4L O2 NC. WILL CONTINUE TO MONITOR AND REPORT OFF TO ONCOMING RN.
--- NOTE | 2021-08-28 19:30 | NUR ---
ASSUMED CARE ASSUMED CARE OF PATIENT AT 1900. AWAKE AND ALERT. SITTING UP ON EDGE OF BED. ORIENTED AND COOPERATIVE. PT STATES HE IS FEELING ANXIOUS. CIWA 10. TREMORS AND SWEATING NOTED. DENIES C/O NAUSEA OR HEADACHE AT THIS TIME. RESTLESS BEHAVIOR NOTED. MONITOR SHOWS NSR, RATE 70s. BP STABLE. REMAINS ON 4LNC AT THIS TIME D/T DESATURATIONS WHEN ASLEEP. TOLERATING DIET WELL. UP TO TOILET TO VOID WITH STAND-BY ASSIST. VOIDING WITHOUT DIFFICULTY. BANANA BAG INFUSING PER ORDER. SEE SHIFT ASSESSMENT FOR FULL ASSESSMENT.
[2021-08-29 03:42] LABS: BASOPHILS ABSOLUTE AUTO 0.02 K/mm3 (0.00-0.23); BASOPHILS PERCENT AUTO 0 % (0-2); EOSINOPHILS ABSOLUTE AUTO 0.04 K/mm3 (0.00-0.68); EOSINOPHILS PERCENT AUTO 1 % (0-6); IMMATURE GRAN ABSOLUTE AUTO 0.02 K/mm3 (0.00-0.10); IMMATURE GRAN PERCENT AUTO 0 % (0-1); LYMPHOCYTES ABSOLUTE AUTO 2.13 K/mm3 (0.84-5.20); LYMPHOCYTES PERCENT AUTO 30 % (21-46); MONOCYTES ABSOLUTE AUTO 0.55 K/mm3 (0.16-1.47); MONOCYTES PERCENT AUTO 8 % (4-13); Mean Corpuscular HGB 28.3 pg (26.0-34.0); Mean Corpuscular HGB Conc 32.6 g/dL (31.5-36.5); Mean Corpuscular Volume 87 fL (80-100); Mean Platelet Volume 8.9 fL (9.1-12.4); NEUTROPHILS ABSOLUTE AUTO 4.32 K/mm3 (1.96-9.15); NEUTROPHILS PERCENT AUTO 61 % (41-73); Platelet Count 269 K/mm3 (150-400); RDW Coefficient Variation 13.2 % (11.7-14.2); RDW Standard Deviation 42.3 fL (35.1-46.3); Red Blood Cell Count 4.94 M/mm3 (4.30-5.90); White Blood Cell Count 7.08 K/mm3 (4.00-11.30)
[2021-08-29 04:27] LABS: Anion Gap 7 mmol/L (6-16); Blood Urea Nitrogen 15 mg/dL (8-24); Bun/Creatinine Ratio 16.2 (12.0-20.0); CO2, Blood 29 mmol/L (21-32); Calcium, Blood 8.4 mg/dL (8.5-10.1); Chloride, Blood 101 mmol/L (98-108); Creatinine, Blood 0.93 mg/dL (0.60-1.20); Glomerular Filtration Rate >60 (60-); Glucose, Blood 91 mg/dL (70-99); Potassium, Blood 4.7 mmol/L (3.5-5.5); Sodium, Blood 137 mmol/L (136-145)
--- NOTE | 2021-08-29 06:24 | NUR ---
SHIFT SUMMARY NO ACUTE CHANGES DURING NOC. SLEPT WHEN UNDISTURBED. ROUSES EASILY TO VERBAL STIMULI. CIWA SCORES 5-10 DURING NOC. MEDICATED WITH ATIVAN 2MG IV X 1 DOSE AND LIBRIUM 50MG PO X 2 DOSES. VSS, ALTHOUGH PT IS OCCASIONALLY HYPERTENSIVE. UP TO BR WITH STAND-BY ASSIST TO VOID. BED ALARM IS ON WHILE IN BED. DENIES C/O PAIN. INTERMITTENT MILD NAUSEA. O2 3L NC WHILE SLEEPING D/T PERIODS OF APNEA. WILL REPORT TO ONCOMING RN WHEN AVAILABLE.
--- NOTE | 2021-08-29 08:08 | NUR ---
patient sleeping, wakes easily and then back to bed, makes needs known, no present distress, wctm
--- NOTE | 2021-08-29 10:57 | NUR ---
PATIENT SHOWER, STEADY GAIT AMBULATING FROM SHOWER TO ROOM, STAND BY ASSIST ONLY
--- NOTE | 2021-08-29 11:02 | NUR ---
Pt. is sitting up in a chair. Pt. welcomes my visit. Pt. accurately verbalizes his condition. Through theraputic listening am able to develop rapport. Encourage self-care. Pt. verbalizes some issues of frances and belief. Explore personal issues of frances and belief. Reinforced helpful attitudes and continued steps in pts. recovery plan. Prayed with pt. Pt. verbalizes gratitude for prayer and spiritual care visit.
--- NOTE | 2021-08-29 11:39 | NUR ---
MOTHER AT BEDSIDE VISITING, PATIENT REQUESTED NICORETTE GUM, GUM ORDERED, AMBULATING IN ROOM
--- NOTE | 2021-08-29 13:58 | NUR ---
MICROSTRATEGY DEVELOPER IN DOING THE SURVEY FOR IN PATIENT DEPENDANCEY ADMIT
--- NOTE | 2021-08-29 15:41 | NUR ---
REPORTED TO DR BUNNY [place] HEART RATE INCREASED, BP INCREASED, STARTED PRECEDEX GTT, MEDICATED WITH ATIVAN, PATIETN WANTING TO LEAVE AMA, NEW ORDER FOR A ONE TIME ATIVAN ADD, WCTM
--- NOTE | 2021-08-29 17:07 | NUR ---
PATEINT ALERT AND ORIENTED, AGGITATION, IRRITABILITY, THREATENING TO LEAVE AMA TO GET DRUNK AROUND 1500 TODAY, REPORTED CHANGE TO DR BUNNY, STARTED PRECEDEX GTT NOW AT 0.3 MCG, HEART RATE 70-78S, NO SOLE CARDIA, SNORING LOUDLY, 5L O2 VIA NV, ORDER FOR PRN CPAP AND OXYGEN ENTERED. BED ALARM ON. LS DIMINISHED THROUGH OUT, STAT 95% WHILE SLEEPING ON 5L O2, NO DISTRESS, RESPS EVEN AND NONLABORED. DISTANT HEART TONES, SNR-SINUS TACH. PATIENT ATE BREAKFAST AND LUNCH, DENIED N/V, VOIDING PER TOILET, INDEPEDANT FOR ADLS, STEADY GAIT IN ROOM, WALKED TO SHOWER AND BACK TODAY. OPERATIONAL RISK MANAGER WORKING ON PLACEMENT AT A [facility] IN [place]. WILL RELAY TO PM RN, CLAUDIA
--- NOTE | 2021-08-29 20:54 | NUR ---
UNABLE TO AROUSE PT AT BEGINNING OF SHIFT. PRECEDEX GTT AT 1.0MCG/KG/HR FOR AGGITATION/SEDATION. TITRATED DOWN TO 0.5MCG/KG/HR, PT IS ALERT AND ORIENTED X4, ANXIOUS, BUT COOPERATIVE. CIWA OF 8 DONE. PT STATES HE WANTS TO KEEP HIS ANXIETY DECREASED, OTHERWISE HE WILL WANT TO LEAVE. CALL TO DR. HUNTER TO OBTAIN ORDERS FOR LIBRIUM 50MG PO Q6H PRN. ATIVAN IS AVAILABLE PRN. HR IS NSR, RATE IN 60'S. BP STABLE. WEARING 5L O2 NC FOR SLEEP APNEA/SNORING, HAS CPAP AT HOME, BUT DOES NOT WEAR. HE ATE HALF OF HIS DINNER, AND REQUESTED TO GO BACK TO SLEEP. ORDERS REVIEWED, WILL TREAT PRESCRIBED.
--- NOTE | 2021-08-30 00:34 | NUR ---
REASSESSMENT PT SNORING, RESPIRATIONS UNLABORED AND EVEN. AROUSES TO VOICE. STATES HE IS NOT ANXIOUS AT THIS TIME AND WOULD LIKE TO RETURN TO SLEEP. HR IS NSR IN 60'S, BP STABLE. AFEBRILE. PRECEDEX CONTINUES AT 0.6MCG/KG/HR. WEARING 4L O2 NC, SPO2 >96%.
--- NOTE | 2021-08-30 04:08 | NUR ---
MEDICATED WITH PRN LIBRIUM AND ATIVAN PER EMAR AND CIWA. MOST RECENT CIWA OF 8. PT REMAINS ALERT AND ORIENTED X4. PRECEDEX AT 0.5MCG/KG/HR. PT STATES HE SLEPT WELL FOR MOST OF SHIFT AND ANXIETY HAS IMPROVED. HE IS SLIGHTLY TREMULOUS WHEN REPOSITIONING SELF, BUT HAD STEADY GAIT WHEN UP IN ROOM TO USE BATHROOM. HR REMAINS SINUS RHYTHM, RATE IN 60'S. BP LABILE, WILL OCCASIONALLY HAVE HYPERTENSIVE BP WITH SBP IN 180'S, HOWEVER IT IS NOT CONSISTENTLY ELEVATED. O2 AT 4L NC REMAINS ON FOR PERIODS OF APNEA, SPO2 NEVER BELOW 92%, RESPIRATIONS UNLABORED AND EVEN. AFEBRILE. HE DENIES NAUSEA/VOMITING OR HEADACHES. REPORT GIVEN TO RONALD TAYLOR AT 0400.
--- NOTE | 2021-08-30 06:22 | NUR ---
ASSUMED CARE/SHIFT SUMMARY. PT CARE TRANSFERRED AT APPROXIMATELY 0400. PT SLEEPING IN BED, AROUSABLE AND FOLLOWING COMMANDS. ON 02 VIA NC AT 4 L/MIN. VS STABLE. PRECEDEX RUNNING AT 0.5 MCG/KG/HR. SEE SHIFT ASSESSMENT FOR DETAILS. WILL CONTINUE TO MONITOR AND REPORT OFF TO DAYSHIFT RN.
--- NOTE | 2021-08-30 08:25 | NUR ---
INITIAL ASSESSMENT PATIENT SLEEPING SOUNDLY UPON NURSE ENTERING ROOM. PATIENT WAKES WITH VERBAL STIMULI AND PATTING ON ARM. PATIENT CALM AND COOPERATIVE. PATIENT SLOW TO RESPOND. PATIENT ALERT AND ORIENTED EXCEPT TO MONTH. SLIGHT TREMORS NOTED. PATIENT AFEBRILE. PATIENT DENIES PAIN. PATIENT 1 PERSON ASSIST TO TOILET. PATIENT IS WEAK AND STATES HE FEELS "GROGGY". CIWA SCORE OF 6 THIS AM. LUNGS CLEAR IN UPPER LOBES AND DIMINISHED IN LOWER LOBES. PATIENT ON RA WHILE AWAKE AND ON 3 L NC WITH SLEEP TO KEEP SATS 90% AND GREATER. PATIENT IN SB, HR IN THE 50S. SBP IN THE 130S. ABDOMEN MODERATELY DISTENDED, SOFT, WITH HYPERACTIVE BOWEL SOUNDS NOTED. LAST BM ON 08/28. WNL. SKIN DIAPHORETIC AND SUNG. R THUMB AMPUTATION NOTED. PRECEDEX INFUSING AT 0.4 MCG/ KG/ HOUR. BED LOW, CALL LIGHT IN REACH. BED ALARM ON. MOTHER AT BEDSIDE. WILL CONTINUE TO MONITOR PATIENT FREQUENTLY THROUGHOUT SHIFT.
--- NOTE | 2021-08-30 12:00 | NUR ---
PATIENT AFEBRILE. NO COMPLAINTS OF PAIN. PATIENT BECOMING MORE AGITATION. PATIENT ADMITS TO FEELING AGITATED AND STATES THAT HE WANTS TO LEAVE. NURSE HAD LONG TALK WITH PATIENT AND WAS ABLE TO DIFFUSE SITUATION SOME. CIWA SCORE OF 9. PRN ATIVAN GIVEN. ZOLOFT STARTED. PRECEDEX AT 0.3 MCG/ KG/ HOUR. HR IN THE 60S. SBP IN THE 130S. PATIENT SATTING 90% AND GREATER ON RA. NO OTHER ACUTE CHANGES TO NOTE ON AT THIS TIME. WILL CONTINUE TO MONITOR.
--- NOTE | 2021-08-30 15:00 | NUR ---
SHIFT SUMMARY PATIENT CALM AND COOPERATIVE MOST OF THE DAY. PRECEDEX DECREASED FROM 0.5 TO 0.3 MCG/ KG/ HOUR. PATIENT RECEIVED PRN LIBRIUM AND ATIVAN THIS SHIFT WELL. SHORT TIME AGO PATIENT DECIDED THAT HE WANTED TO GO AMA. MOTHER IN ROOM. NURSE HAD LENGTHY CONVERSATION WITH PATIENT AND THEN DR. ZABALA CAME DOWN AND HAD LONG CONVERSATION WITH PATIENT AND MOTHER WELL. PATIENT STATES HE UNDERSTANDS RISKS OF LEAVING AND BENEFITS OF STAYING. PATIENT STATES "THE NEED FOR ALCOHOL IS JUST TOO GREAT. I STILL WANT TO GO INPATIENT TO GET HELP". PATIENT INFORMED THAT HE WOULD HAVE TO FIND HIS OWN INPATIENT AFTER LEAVING THE HOSPITAL AMA BECAUSE THE HOSPITAL NO LONGER WOULD TRY TO FIND PLACEMENT FOR HIM. PATIENT REMAINED AFEBRILE. PATIENT DENIED PAIN THE WHOLE SHIFT. CIWA SCORE 6 TO 9. PATIENT REMAINED ALERT AND ORIENTED. PATIENT WORKED WITH OT AND OT STATED THEY FEEL COMFORTABLE WITH PATIENT WALKING ON OWN BUT THAT PATIENT MAY NEED HELP WITH LINES AND CORDS. PATIENT REMAINED ON RA WHILE AWAKE AND 3 L NC WHILE SLEEPING. PATIENT SB TO SR, HR 50S TO 60S. SBP 120S TO 150S. PATIENT HAD 2 BMS THIS SHIFT. PATIENT HAD GOOD APPETITE. WNL. NO CHANGES TO SKIN NOTED. PATIENT REMAINED SUNG. PATIENT STARTED ON ZOLOFT AT NOON. MOTHER WAS IN ROOM MOST OF THE SHIFT. PATIENT SIGNED AMA DOCUMENTATION. PATIENT TOOK ALL BELONGINGS INCLUDING CELL PHONE. PATIENT WALKED OUT TO MOTHER'S CARE AT ADMITTING ENTRANCE. DISCHARGE COMPLETE.
== END 2021-08-30 15:00 | disposition home or self-care (01) | DRG 897 ==
LOC: ER 21:28 → ICUW 21:29 → ICUE 08-28 01:15
PROVIDERS: Physician Assistant; ADMIT Internal Medicine
DX: F10.231 Alcohol dependence with withdrawal delirium (principal); Z68.42 Body mass index [BMI] 45.0-49.9, adult; D10.2 Benign neoplasm of floor of mouth; F41.9 Anxiety disorder, unspecified; E66.01 Morbid (severe) obesity due to excess calories; F41.0 Panic disorder [episodic paroxysmal anxiety]; Z79.899 Other long term (current) drug therapy; F17.210 Nicotine dependence, cigarettes, uncomplicated; Z89.019 Acquired absence of unspecified thumb
CPT/HCPCS: 36415; 80048; 80053; 81001; 82272; 83690; 83735; 85025; 86850; 86900; 86901; 93005; 93010; 96365; 96366; 96375; 96376; 97165; 99285-25; A9270; G0480; J1650; J2060; J2405; J3411; J3475; J7030; J7042; J7050

== ENCOUNTER 2021-08-30 16:15 | Emergency (ER) | payer OTHER ==
[~2021-08-30] VITALS: Ht 193 cm; Wt 170.1 kg
[2021-08-30 17:42] LABS: BASOPHILS ABSOLUTE AUTO 0.04 K/mm3 (0.00-0.23); BASOPHILS PERCENT AUTO 0 % (0-2); EOSINOPHILS ABSOLUTE AUTO 0.05 K/mm3 (0.00-0.68); EOSINOPHILS PERCENT AUTO 1 % (0-6); Hematocrit 42.7 % (37.0-53.0); Hemoglobin 14.6 g/dL (13.5-17.5); IMMATURE GRAN ABSOLUTE AUTO 0.03 K/mm3 (0.00-0.10); IMMATURE GRAN PERCENT AUTO 0 % (0-1); LYMPHOCYTES ABSOLUTE AUTO 1.49 K/mm3 (0.84-5.20); LYMPHOCYTES PERCENT AUTO 14 % (21-46); MONOCYTES ABSOLUTE AUTO 0.53 K/mm3 (0.16-1.47); MONOCYTES PERCENT AUTO 5 % (4-13); Mean Corpuscular HGB 28.5 pg (26.0-34.0); Mean Corpuscular HGB Conc 34.2 g/dL (31.5-36.5); Mean Corpuscular Volume 83 fL (80-100); Mean Platelet Volume 9.3 fL (9.1-12.4); NEUTROPHILS ABSOLUTE AUTO 8.28 K/mm3 (1.96-9.15); NEUTROPHILS PERCENT AUTO 79 % (41-73); Platelet Count 286 K/mm3 (150-400); RDW Coefficient Variation 12.5 % (11.7-14.2); RDW Standard Deviation 37.9 fL (35.1-46.3); Red Blood Cell Count 5.13 M/mm3 (4.30-5.90); White Blood Cell Count 10.42 K/mm3 (4.00-11.30)
[2021-08-30 18:03] LABS: Alanine Aminotransfer (ALT/SGP 74 U/L (12-78); Albumin, Blood 3.6 g/dL (3.4-5.0); Albumin/Globulin Ratio 0.9 (0.8-1.8); Alk Phos 76 U/L (50-136); Anion Gap 2 mmol/L (6-16); Aspartate Aminotrans (AST/SGOT 43 U/L (12-37); Bilirubin, Total 0.5 mg/dL (0.1-1.0); Blood Urea Nitrogen 24 mg/dL (8-24); Bun/Creatinine Ratio 21.6 (12.0-20.0); CO2, Blood 28 mmol/L (21-32); Calcium, Blood 8.9 mg/dL (8.5-10.1); Chloride, Blood 105 mmol/L (98-108); Creatinine, Blood 1.11 mg/dL (0.60-1.20); Ethanol (Alcohol), Blood, Med <3 mg/dL; Globulin, Blood 3.9 g/dL (2.2-4.0); Glomerular Filtration Rate >60 (60-); Glucose, Blood 111 mg/dL (70-99); Magnesium, Blood 2.1 mg/dL (1.6-2.4); Potassium, Blood 4.1 mmol/L (3.5-5.5); Sodium, Blood 135 mmol/L (136-145); Total Protein, Blood 7.5 g/dL (6.4-8.2)
== END 2021-08-30 20:06 | disposition left against medical advice (07) ==
LOC: ER 16:15
PROVIDERS: Physician Assistant
DX: F10.239 Alcohol dependence with withdrawal, unspecified (principal); Z53.21 Procedure and treatment not carried out due to patient leaving prior to being seen by health care provider
CPT/HCPCS: 36415; 80053; 83735; 85025; G0480

== ENCOUNTER 2021-08-30 23:40 | Emergency (ER) | payer OTHER | END 2021-08-31 00:29 | disposition left against medical advice (07) | LOC: ER 23:40 | DX: Z53.21 Procedure and treatment not carried out due to patient leaving prior to being seen by health care provider (principal) ==

== ENCOUNTER 2021-08-31 00:55 | Inpatient (IN) | payer OTHER ==
[~2021-08-31] VITALS: Ht 195.6 cm; Wt 164.2 kg
[2021-08-31 02:20] LABS: BASOPHILS ABSOLUTE AUTO 0.03 K/mm3 (0.00-0.23); BASOPHILS PERCENT AUTO 0 % (0-2); EOSINOPHILS ABSOLUTE AUTO 0.01 K/mm3 (0.00-0.68); EOSINOPHILS PERCENT AUTO 0 % (0-6); Hematocrit 43.6 % (37.0-53.0); Hemoglobin 14.9 g/dL (13.5-17.5); IMMATURE GRAN ABSOLUTE AUTO 0.07 K/mm3 (0.00-0.10); IMMATURE GRAN PERCENT AUTO 1 % (0-1); LYMPHOCYTES ABSOLUTE AUTO 2.35 K/mm3 (0.84-5.20); LYMPHOCYTES PERCENT AUTO 19 % (21-46); MONOCYTES ABSOLUTE AUTO 0.64 K/mm3 (0.16-1.47); MONOCYTES PERCENT AUTO 5 % (4-13); Mean Corpuscular HGB 28.2 pg (26.0-34.0); Mean Corpuscular HGB Conc 34.2 g/dL (31.5-36.5); Mean Corpuscular Volume 83 fL (80-100); Mean Platelet Volume 9.3 fL (9.1-12.4); NEUTROPHILS ABSOLUTE AUTO 9.18 K/mm3 (1.96-9.15); NEUTROPHILS PERCENT AUTO 75 % (41-73); Platelet Count 341 K/mm3 (150-400); RDW Coefficient Variation 12.5 % (11.7-14.2); Red Blood Cell Count 5.28 M/mm3 (4.30-5.90); White Blood Cell Count 12.28 K/mm3 (4.00-11.30)
[2021-08-31 02:28] LABS: Alanine Aminotransfer (ALT/SGP 73 U/L (12-78); Albumin, Blood 3.8 g/dL (3.4-5.0); Albumin/Globulin Ratio 0.9 (0.8-1.8); Alk Phos 77 U/L (50-136); Anion Gap 9 mmol/L (6-16); Aspartate Aminotrans (AST/SGOT 48 U/L (12-37); Bilirubin, Total 0.4 mg/dL (0.1-1.0); Blood Urea Nitrogen 17 mg/dL (8-24); CO2, Blood 27 mmol/L (21-32); Calcium, Blood 8.8 mg/dL (8.5-10.1); Chloride, Blood 104 mmol/L (98-108); Creatinine, Blood 1.06 mg/dL (0.60-1.20); Ethanol (Alcohol), Blood, Med 266 mg/dL; Globulin, Blood 4.1 g/dL (2.2-4.0); Glomerular Filtration Rate >60 (60-); Glucose, Blood 111 mg/dL (70-99); Sodium, Blood 140 mmol/L (136-145); Total Protein, Blood 7.9 g/dL (6.4-8.2)
--- NOTE | 2021-08-31 06:55 | NUR ---
SUMMARY OF EVENTS. PT ADMITTED TO ICU AT APPROXIMATELY 0405. MOTHER AT BEDSIDE INITIALLY. PT VERY RESTLESS/AGITATED UPON ARRIVAL, EVENTUALLY COAXED INTO BED. PRECEDEX STARTED AND TITRATED UP TO 0.5 MCG/KG/HR. LIBRIUM AND ATIVAN GIVEN. DURING FIRST HOUR AND A HALF, PT WAS REPEATEDLY REDIRECTED AND TALKED INTO STAYING IN BED, PT ATTEMPTED TO PULL LINES/CORDS OFF MULTIPLE TIMES. ONCE SEDATED, PT RESTED QUIETLY FOR REMAINDER OF SHIFT. PRECEDEX TITRATED BACK DOWN FOR SYSTOLIC BP BELOW 100, CURRENTLY ON STANDBY. VS STABLE, SEE SHIFT ASSESSMENT FOR FURTHER DETAILS. 1:[address] FOR HIGH RISK SI. WILL CONTINUE TO MONITOR AND REPORT OFF TO DAYSHIFT RN.
--- NOTE | 2021-08-31 08:00 | NUR ---
ASSUMED CARE OF PT, REPORT RCV'D FROM RONALD TAYLOR. PT ALERT DROWSY BUT AWAKES TO VERBAL STIMULATION. PT DENIES THAT HE HAS SUICIDAL IDEATION AND STATES THAT HE "NEW IT WAS A MISTAKE SOON HE LEFT AMA YESTERDAY. PT REFUSING ATIVAN OR LIBRIUM AT THIS TIME. DISCUSSED THE BENEFIT OF ALLEVIATING WITHDRAWAL SYMPTOMS. PT CONTINUES TO DENY MEDICATION AND SAYS HE IS GOING TO "ROUGH THIS ONE OUT". PRECEDEX GTT RESTARTED AT 0.5 MCG/KG/HR. PT STANDS AT BEDSIDE WITH STANDBY ASSIST TO USE URINAL. PT MOSTLY STEADY ON HIS FEET, MINIMAL TREMORS NOTED. AUDIBLE INSPIRATORY/EXPIRATORY WHEEZES HEARD, PT ON 5L NC WITH SATS>90%. 2-MD HOLD INITIATED. ROOM MITIGATION PERFORMED PER PROTOCOL. 1:1 SITTER AT DOORWAY WITH UNOBSTRUCTED VIEW. SEE FULL SHIFT ASSESSMENT.
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
[2021-08-31 14:50] LABS: Source, Urine Foley catheter
[2021-08-31 14:53] LABS: Bilirubin, Urine Neg (Neg); Blood, Urine Neg (Neg); Glucose Qualitative, Urine Neg (Neg); Ketones, Urine Neg (Neg); Leukocyte Esterase, Urine Neg (Neg); Nitrite, Urine Neg (Neg); Protein, Urine Neg (Neg); Urobilinogen, Urine NORM (Normal)
[2021-08-31 15:06] LABS: Appearance, Urine Clear (Clear); Color, Urine Pale Yellow (P-Yellow)
--- NOTE | 2021-08-31 15:44 | NUR ---
PT INCONTINENT OF URINE. HURLEY CATHETER PLACED AND 800 ML IMMEDIATE URINARY OUTPUT.
--- NOTE | 2021-08-31 17:48 | NUR ---
PRECEDEX PLACED ON STANDBY SO DR. FLORES ABLE TO ASSESS PT. PT DENIES SI, 2-MD HOLD LIFTED. PT COOPERATIVE, RESTRAINTS REMOVED. PT EXPRESSES WISH TO LEAVE AMA. DISCUSSED RISKS ASSOCIATED WITH LEAVING AGAINST MEDICAL ADVICE. CHARGE NURSE AND DR. ZABALA AT BEDSIDE ENCOURAGING PT TO STAY. PT REFUSES. HURLEY CATHETER AND IV'S REMOVED. AMA PAPERWORK SIGNED. PT'S MOTHER CALLED, WILL BRING PT CLOTHES AND TRANSPORT PT HOME. PT DENIES NEEDS AT THIS TIME.
== END 2021-08-31 18:00 | disposition left against medical advice (07) | DRG 894 ==
LOC: ER 00:55 → ICUW 03:11 → ICUE 03:11
PROVIDERS: Internal Medicine; Student in an Organized Health Care Education/Training Program; ADMIT Internal Medicine
PROC: HZ2ZZZZ Detoxification Services for Substance Abuse Treatment (ICD-10-PCS; principal; 2021-08-31)
DX: F10.239 Alcohol dependence with withdrawal, unspecified (principal); R45.851 Suicidal ideations; Z68.42 Body mass index [BMI] 45.0-49.9, adult; Z28.21 Immunization not carried out because of patient refusal; I10 Essential (primary) hypertension; F41.9 Anxiety disorder, unspecified; D72.829 Elevated white blood cell count, unspecified; E66.01 Morbid (severe) obesity due to excess calories; R45.1 Restlessness and agitation; F17.210 Nicotine dependence, cigarettes, uncomplicated; Z71.6 Tobacco abuse counseling; Z98.890 Other specified postprocedural states; Z79.899 Other long term (current) drug therapy; Y90.8 Blood alcohol level of 240 mg/100 ml or more
CPT/HCPCS: 51702; 80053; 81003; 83690; 85025; 94762; 96374; 96376; 99285; A9270; G0480; J1630; J1650; J2060; J3411; J3475; J7030; J7042; J7050; J7120

== ENCOUNTER 2021-09-03 20:28 | Emergency (ER) | payer OTHER ==
[~2021-09-03] VITALS: Ht 193 cm; Wt 170.1 kg
[2021-09-03 21:19] LABS: BASOPHILS ABSOLUTE AUTO 0.04 K/mm3 (0.00-0.23); BASOPHILS PERCENT AUTO 0 % (0-2); EOSINOPHILS ABSOLUTE AUTO 0.02 K/mm3 (0.00-0.68); EOSINOPHILS PERCENT AUTO 0 % (0-6); Hematocrit 43.1 % (37.0-53.0); Hemoglobin 14.4 g/dL (13.5-17.5); IMMATURE GRAN ABSOLUTE AUTO 0.06 K/mm3 (0.00-0.10); IMMATURE GRAN PERCENT AUTO 1 % (0-1); LYMPHOCYTES PERCENT AUTO 32 % (21-46); MONOCYTES ABSOLUTE AUTO 0.56 K/mm3 (0.16-1.47); MONOCYTES PERCENT AUTO 6 % (4-13); Mean Corpuscular HGB 28.2 pg (26.0-34.0); Mean Corpuscular HGB Conc 33.4 g/dL (31.5-36.5); Mean Corpuscular Volume 84 fL (80-100); Mean Platelet Volume 8.9 fL (9.1-12.4); NEUTROPHILS ABSOLUTE AUTO 5.93 K/mm3 (1.96-9.15); NEUTROPHILS PERCENT AUTO 61 % (41-73); Platelet Count 289 K/mm3 (150-400); RDW Coefficient Variation 13.2 % (11.7-14.2); RDW Standard Deviation 41.1 fL (35.1-46.3); Red Blood Cell Count 5.11 M/mm3 (4.30-5.90); White Blood Cell Count 9.71 K/mm3 (4.00-11.30)
[2021-09-03 21:38] LABS: Salicylate 1.9 mg/dL (2.8-20.0)
[2021-09-03 21:39] LABS: Alanine Aminotransfer (ALT/SGP 94 U/L (12-78); Albumin, Blood 3.7 g/dL (3.4-5.0); Albumin/Globulin Ratio 0.9 (0.8-1.8); Alk Phos 75 U/L (50-136); Anion Gap 6 mmol/L (6-16); Aspartate Aminotrans (AST/SGOT 83 U/L (12-37); Bilirubin, Total 0.4 mg/dL (0.1-1.0); Blood Urea Nitrogen 5 mg/dL (8-24); Bun/Creatinine Ratio 4.6 (12.0-20.0); CO2, Blood 29 mmol/L (21-32); Calcium, Blood 8.9 mg/dL (8.5-10.1); Chloride, Blood 105 mmol/L (98-108); Creatinine, Blood 1.08 mg/dL (0.60-1.20); Globulin, Blood 3.9 g/dL (2.2-4.0); Glomerular Filtration Rate >60 (60-); Glucose, Blood 107 mg/dL (70-99); Potassium, Blood 3.7 mmol/L (3.5-5.5); Sodium, Blood 140 mmol/L (136-145); Total Protein, Blood 7.6 g/dL (6.4-8.2)
[2021-09-03 21:42] LABS: Source, Urine Clean Catch
[2021-09-03 21:46] LABS: Bilirubin, Urine Neg (Neg); Blood, Urine Neg (Neg); Glucose Qualitative, Urine Neg (Neg); Ketones, Urine Neg (Neg); Leukocyte Esterase, Urine Neg (Neg); Nitrite, Urine Neg (Neg); Protein, Urine Neg (Neg); Specific Gravity, Urine 1.005 (1.003-1.022); Urobilinogen, Urine NORM (Normal)
[2021-09-03 21:49] LABS: Ethanol (Alcohol), Blood, Med 293 mg/dL
[2021-09-03 21:50] LABS: Acetaminophen, Random <2.0 ug/mL (10.0-30.0)
[2021-09-03 21:51] LABS: International Normalized Ratio 0.95
[2021-09-03 22:00] LABS: U Amphetamine Screen Not Detected; U Barbituate Screen Not Detected; U Benzodiazapine Screen DETECTED; U Buprenorphine Screen Not Detected; U Cannabinoids Screen Not Detected; U Cocaine Screen Not Detected; U Methadone Screen Not Detected; U Methamphetamine Screen Not Detected; U Opiates Screen Not Detected; U Oxycodone Screen Not Detected; U Phencyclidine Screen Not Detected; U Propoxyphene Screen Not Detected
[2021-09-03 22:04] LABS: Appearance, Urine Clear (Clear); Color, Urine Pale Yellow (P-Yellow)
== END 2021-09-03 22:08 | disposition home or self-care (01) ==
LOC: ER 20:28
PROVIDERS: Physician Assistant
DX: F10.10 Alcohol abuse, uncomplicated (principal); F17.210 Nicotine dependence, cigarettes, uncomplicated; Z79.899 Other long term (current) drug therapy
CPT/HCPCS: 36415; 80053; 81003; 85025; 85610; 85730; 93005; 93010; G0480

== ENCOUNTER 2021-09-11 04:07 | Observation (INO) | payer OTHER ==
[~2021-09-11] VITALS: Ht 193 cm; Wt 170.1 kg
[2021-09-11 06:36] LABS: BASOPHILS ABSOLUTE AUTO 0.02 K/mm3 (0.00-0.23); BASOPHILS PERCENT AUTO 0 % (0-2); EOSINOPHILS ABSOLUTE AUTO 0.04 K/mm3 (0.00-0.68); EOSINOPHILS PERCENT AUTO 1 % (0-6); Hematocrit 45.4 % (37.0-53.0); Hemoglobin 15.1 g/dL (13.5-17.5); IMMATURE GRAN ABSOLUTE AUTO 0.03 K/mm3 (0.00-0.10); IMMATURE GRAN PERCENT AUTO 0 % (0-1); LYMPHOCYTES ABSOLUTE AUTO 2.61 K/mm3 (0.84-5.20); LYMPHOCYTES PERCENT AUTO 30 % (21-46); MONOCYTES ABSOLUTE AUTO 0.68 K/mm3 (0.16-1.47); MONOCYTES PERCENT AUTO 8 % (4-13); Mean Corpuscular HGB 28.7 pg (26.0-34.0); Mean Corpuscular HGB Conc 33.3 g/dL (31.5-36.5); Mean Corpuscular Volume 86 fL (80-100); Mean Platelet Volume 8.7 fL (9.1-12.4); NEUTROPHILS PERCENT AUTO 62 % (41-73); Platelet Count 300 K/mm3 (150-400); RDW Coefficient Variation 15.5 % (11.7-14.2); RDW Standard Deviation 45.9 fL (35.1-46.3); Red Blood Cell Count 5.27 M/mm3 (4.30-5.90); White Blood Cell Count 8.78 K/mm3 (4.00-11.30)
[2021-09-11 07:01] LABS: Alanine Aminotransfer (ALT/SGP 142 U/L (12-78); Albumin, Blood 3.7 g/dL (3.4-5.0); Albumin/Globulin Ratio 0.9 (0.8-1.8); Alk Phos 70 U/L (50-136); Anion Gap 7 mmol/L (6-16); Aspartate Aminotrans (AST/SGOT 129 U/L (12-37); Bilirubin, Total 0.4 mg/dL (0.1-1.0); Blood Urea Nitrogen 5 mg/dL (8-24); Bun/Creatinine Ratio 4.7 (12.0-20.0); CO2, Blood 26 mmol/L (21-32); Calcium, Blood 8.8 mg/dL (8.5-10.1); Chloride, Blood 110 mmol/L (98-108); Creatinine, Blood 1.07 mg/dL (0.60-1.20); Ethanol (Alcohol), Blood, Med 235 mg/dL; Glomerular Filtration Rate >60 (60-); Glucose, Blood 110 mg/dL (70-99); Potassium, Blood 3.9 mmol/L (3.5-5.5); Salicylate 2.2 mg/dL (2.8-20.0); Sodium, Blood 143 mmol/L (136-145); Total Protein, Blood 7.7 g/dL (6.4-8.2)
[2021-09-11 07:08] LABS: Acetaminophen, Random <2.0 ug/mL (10.0-30.0)
[2021-09-11 12:08] LABS: Influenza A, PCR NEGATIVE (NEGATIVE); Influenza B, PCR NEGATIVE (NEGATIVE); Resp Syncytial Virus, PCR NEGATIVE (NEGATIVE); SARS-Cov-2 (COVID-19) PCR, MMC NEGATIVE (NEGATIVE)
== END 2021-09-11 14:26 | disposition home or self-care (01) ==
LOC: ER 04:07 → EOR 04:09
PROVIDERS: ADMIT Emergency Medicine
DX: F10.24 Alcohol dependence with alcohol-induced mood disorder (principal); F10.239 Alcohol dependence with withdrawal, unspecified; I10 Essential (primary) hypertension; F32.A Depression, unspecified; F17.210 Nicotine dependence, cigarettes, uncomplicated; Z20.822 Contact with and (suspected) exposure to COVID-19
CPT/HCPCS: 0241U; 80053; 85025; A9270; G0480; J2060; J2405

== ENCOUNTER 2021-11-07 08:38 | Emergency (ER) | payer OTHER ==
[~2021-11-07] VITALS: Ht 193 cm; Wt 170.1 kg
[2021-11-07 09:13] LABS: BASOPHILS ABSOLUTE AUTO 0.03 K/mm3 (0.00-0.23); BASOPHILS PERCENT AUTO 1 % (0-2); EOSINOPHILS ABSOLUTE AUTO 0.01 K/mm3 (0.00-0.68); EOSINOPHILS PERCENT AUTO 0 % (0-6); Hematocrit 43.8 % (37.0-53.0); Hemoglobin 14.9 g/dL (13.5-17.5); IMMATURE GRAN ABSOLUTE AUTO 0.04 K/mm3 (0.00-0.10); IMMATURE GRAN PERCENT AUTO 1 % (0-1); LYMPHOCYTES PERCENT AUTO 29 % (21-46); MONOCYTES ABSOLUTE AUTO 0.35 K/mm3 (0.16-1.47); MONOCYTES PERCENT AUTO 5 % (4-13); Mean Corpuscular HGB 28.7 pg (26.0-34.0); Mean Corpuscular Volume 84 fL (80-100); Mean Platelet Volume 8.6 fL (9.1-12.4); NEUTROPHILS ABSOLUTE AUTO 4.21 K/mm3 (1.96-9.15); NEUTROPHILS PERCENT AUTO 64 % (41-73); Platelet Count 315 K/mm3 (150-400); RDW Coefficient Variation 13.2 % (11.7-14.2); RDW Standard Deviation 40.9 fL (35.1-46.3); Red Blood Cell Count 5.19 M/mm3 (4.30-5.90); White Blood Cell Count 6.54 K/mm3 (4.00-11.30)
[2021-11-07 09:42] LABS: Ethanol (Alcohol), Blood, Med 279 mg/dL; Salicylate 1.9 mg/dL (2.8-20.0)
[2021-11-07 09:44] LABS: Acetaminophen, Random <2.0 ug/mL (10.0-30.0); Alanine Aminotransfer (ALT/SGP 58 U/L (12-78); Albumin, Blood 3.8 g/dL (3.4-5.0); Alk Phos 66 U/L (50-136); Anion Gap 6 mmol/L (6-16); Aspartate Aminotrans (AST/SGOT 37 U/L (12-37); Bilirubin, Total 0.5 mg/dL (0.1-1.0); Blood Urea Nitrogen 10 mg/dL (8-24); Bun/Creatinine Ratio 11.3 (12.0-20.0); CO2, Blood 30 mmol/L (21-32); Calcium, Blood 8.3 mg/dL (8.5-10.1); Chloride, Blood 105 mmol/L (98-108); Creatinine, Blood 0.88 mg/dL (0.60-1.20); Globulin, Blood 3.7 g/dL (2.2-4.0); Glomerular Filtration Rate 117 (60-); Glucose, Blood 112 mg/dL (70-99); Potassium, Blood 4.1 mmol/L (3.5-5.5); Sodium, Blood 141 mmol/L (136-145); Total Protein, Blood 7.5 g/dL (6.4-8.2)
== END 2021-11-07 09:20 | disposition home or self-care (01) ==
LOC: ER 08:38
PROVIDERS: Emergency Medicine
DX: F10.129 Alcohol abuse with intoxication, unspecified (principal); I10 Essential (primary) hypertension; F17.210 Nicotine dependence, cigarettes, uncomplicated; Z79.899 Other long term (current) drug therapy
CPT/HCPCS: 80053; 84443; 85025; 96374; 99285-25; G0480; J2060

== ENCOUNTER 2021-11-08 13:54 | Emergency (ER) | payer OTHER ==
[~2021-11-08] VITALS: Ht 193 cm; Wt 170.1 kg
[2021-11-08 14:24] LABS: BASOPHILS ABSOLUTE AUTO 0.03 K/mm3 (0.00-0.23); BASOPHILS PERCENT AUTO 0 % (0-2); EOSINOPHILS ABSOLUTE AUTO 0.01 K/mm3 (0.00-0.68); EOSINOPHILS PERCENT AUTO 0 % (0-6); Hematocrit 43.9 % (37.0-53.0); Hemoglobin 15.2 g/dL (13.5-17.5); IMMATURE GRAN ABSOLUTE AUTO 0.07 K/mm3 (0.00-0.10); IMMATURE GRAN PERCENT AUTO 1 % (0-1); LYMPHOCYTES ABSOLUTE AUTO 2.53 K/mm3 (0.84-5.20); LYMPHOCYTES PERCENT AUTO 34 % (21-46); MONOCYTES ABSOLUTE AUTO 0.48 K/mm3 (0.16-1.47); MONOCYTES PERCENT AUTO 7 % (4-13); Mean Corpuscular HGB Conc 34.6 g/dL (31.5-36.5); Mean Corpuscular Volume 84 fL (80-100); Mean Platelet Volume 8.6 fL (9.1-12.4); NEUTROPHILS ABSOLUTE AUTO 4.32 K/mm3 (1.96-9.15); NEUTROPHILS PERCENT AUTO 58 % (41-73); Platelet Count 359 K/mm3 (150-400); RDW Coefficient Variation 13.2 % (11.7-14.2); RDW Standard Deviation 40.6 fL (35.1-46.3); Red Blood Cell Count 5.25 M/mm3 (4.30-5.90); White Blood Cell Count 7.44 K/mm3 (4.00-11.30)
[2021-11-08 14:45] LABS: Albumin, Blood 3.9 g/dL (3.4-5.0); Albumin/Globulin Ratio 1.1 (0.8-1.8); Bilirubin, Total 0.5 mg/dL (0.1-1.0); Bun/Creatinine Ratio 10.9 (12.0-20.0); Calcium, Blood 8.4 mg/dL (8.5-10.1); Creatinine, Blood 1.01 mg/dL (0.60-1.20); Globulin, Blood 3.6 g/dL (2.2-4.0); Potassium, Blood 3.8 mmol/L (3.5-5.5); Total Protein, Blood 7.5 g/dL (6.4-8.2)
== END 2021-11-08 14:48 | disposition left against medical advice (07) ==
LOC: ER 13:54
PROVIDERS: Physician Assistant
DX: F10.229 Alcohol dependence with intoxication, unspecified (principal); Y90.8 Blood alcohol level of 240 mg/100 ml or more; I10 Essential (primary) hypertension; Z79.899 Other long term (current) drug therapy
CPT/HCPCS: 80053; 85025; 96374; 96375; 99284-25; G0480; J2060; J2405; J7030